=== PATIENT | female | born 1960 | race Caucasian/White ===

== ENCOUNTER 2016-11-22 21:47 | Emergency (ER) | payer OTHER ==
[~2016-11-22] VITALS: Ht 154.9 cm; Wt 72.1 kg
[~2016-11-22 21:47] MED LIST: BACTRIM DS TAB1 EACH PO; BACTROBAN22 GM TOP; BENADRYL25 MG; BENADRYL25 MG PO; CELEXA 10 MG TA10 M1 PO; CENTRUM SILVER1 EAC4 PO; CIPRO250 M1 PO; CLARITIN10 M2 PO; CLARITIN10 MG PO; CREAM; FIORICET 50-321 EACH PO; IBUPROFEN 600600 M1 PO; LEVAQUIN 500 M500 M1 PO; MACROBID 100 M100 M1 PO; MACRODANTIN100 MG PO; MEDROLDOSEPACK PO; MULTIVITAMINS1 EAC7 PO; NAPROSYN500 MG PO; NEURONTIN 300300 M1 PO; NOHOMEMEDICATIONS; NORCO 5-325 TA1 EACH PO; NORFLEX100 MG PO; PEPCID20 MG PO; PEPCID40 MG PO; PHENAZOPYRIDIN200 M2; PHENERGAN 25 MG25 M1 PO; PREDNISONE 10 M10 MG PO; PREDNISONE 20 M20 M1 PO; PREDNISONE 20 M20 MG PO; PRINIVIL5 MG PO; PROMS25 WY RECTAL; PYRIDIUM200 MG PO; TYLENOL325 MG PO; ULTRAM 50MG TAB50 MG PO; VISTARIL 25 MG25 M1 PO; ZANTAC 150MG T150 M1 PO; ZOFRAN ODT4 MG PO; ZOFRAN4 MG PO
[2016-11-22] MEDS ORDERED: LOPRESSOR25 PO (22:38)
[2016-11-22 22:50] LABS: ABSOLUTE NEUTROPHILS 3.7 thou/uL (1.4-8.2); BASOPHILS 0.6 % (0.0-2.0); EOSINOPHILS 7.8 % (0.0-3.0); HEMATOCRIT 39.6 % (37.0-47.0); HEMOGLOBIN 13.1 gm/dL (12.0-15.0); LYMPHOCYTES 36.1 % (24.0-44.0); MCH 27.9 pg (26.0-34.0); MCHC 33.1 g/dL (28.0-37.0); MCV 84.2 fL (80.0-100.0); MONOCYTES 6.9 % (1.0-8.0); PLATELET COUNT 224 thou/uL (150-400); POLYS 48.6 % (36.0-66.0); RDW 13.9 % (10.5-14.5); WBC 7.7 thou/uL (4.0-11.0)
[2016-11-22 22:51] LABS: MANUAL DIFF NO
[2016-11-22 22:52] LABS: CALCIUM 8.8 mg/dL (8.5-10.1); CREATININE 0.8 mg/dL (0.6-1.0)
[2016-11-22] MEDS ORDERED: BUTALB-APAP-CA1 EACH PO (23:05)
[2016-11-22 23:16] LABS: URINE BILIRUBIN NEGATIVE (Negative); URINE BLOOD NEGATIVE (Negative); URINE GLUCOSE-RANDOM* NEGATIVE (Negative); URINE KETONES NEGATIVE (Negative); URINE LEUKOCYTES-REFLEX NEGATIVE (Negative); URINE PROTEIN (DIPSTICK) NEGATIVE (Negative); URINE SPECIFIC GRAVITY <= 1.005 (1.003-1.035); URINE UROBILINOGEN 0.2 E.U./dl (0.2-1.0)
[2016-11-22 23:18] LABS: URINE COLOR COLORLESS
== END 2016-11-22 22:38 | disposition home or self-care (01) ==
LOC: ER 21:47
PROVIDERS: Emergency Medicine
DX: G43.901 Migraine, unspecified, not intractable, with status migrainosus (principal); I10 Essential (primary) hypertension; Z98.890 Other specified postprocedural states; Z88.4 Allergy status to anesthetic agent; Z88.6 Allergy status to analgesic agent; Z88.5 Allergy status to narcotic agent; Z77.22 Contact with and (suspected) exposure to environmental tobacco smoke (acute) (chronic)

== ENCOUNTER 2017-01-11 19:17 | Emergency (ER) | payer OTHER ==
[~2017-01-11] VITALS: Ht 157.5 cm; Wt 67.1 kg
[~2017-01-11 19:17] MED LIST changes: +BUTALB-APAP-CA1 EACH PO; +LOPRESSOR25 PO
[2017-01-11 20:28] LABS: URINE BILIRUBIN NEGATIVE (Negative); URINE BLOOD NEGATIVE (Negative); URINE COLOR YELLOW; URINE GLUCOSE-RANDOM* NEGATIVE (Negative); URINE KETONES NEGATIVE (Negative); URINE NITRITE NEGATIVE (Negative); URINE PROTEIN (DIPSTICK) TRACE (Negative); URINE SPECIFIC GRAVITY >= 1.030 (1.003-1.035); URINE UROBILINOGEN 0.2 E.U./dl (0.2-1.0)
[2017-01-11] MEDS ORDERED: NORCO 5-325 TA1 EACH PO (22:25)
[2017-01-11] MEDS ORDERED: VALIUM2 MG PO (22:25)
[2017-01-11] MEDS ORDERED: MOBIC15 MG PO (22:25)
== END 2017-01-11 23:13 | disposition home or self-care (01) ==
LOC: ER 19:17
PROVIDERS: Nurse Practitioner Family
DX: M47.898 Other spondylosis, sacral and sacrococcygeal region (principal); M46.1 Sacroiliitis, not elsewhere classified; G43.909 Migraine, unspecified, not intractable, without status migrainosus; Z77.22 Contact with and (suspected) exposure to environmental tobacco smoke (acute) (chronic); Z98.890 Other specified postprocedural states; Z88.4 Allergy status to anesthetic agent; Z88.5 Allergy status to narcotic agent; Z88.6 Allergy status to analgesic agent